=== PATIENT | male | born 1950 | race Caucasian/White ===

== ENCOUNTER 2019-03-02 07:33 | Inpatient (IN) | payer MEDICARE, OTHER ==
[~2019-03-02] VITALS: Ht 188 cm; Wt 113.3 kg
[2019-03-02] MEDS ORDERED: FLUT1DIS3 INH (08:00)
[2019-03-02] MEDS ORDERED: LEVO125T5 PO (08:00)
[2019-03-02] MEDS ORDERED: AMLO10TA8 PO (08:00)
[2019-03-02] MEDS ORDERED: TIOT18CA INH (08:00)
[2019-03-02] MEDS ORDERED: LOVA40TA2 PO (08:00)
[2019-03-02] MEDS ORDERED: RANI300T PO (08:00)
[2019-03-02] MEDS ORDERED: TERA2CAP3 PO (08:00)
[2019-03-02] MEDS ORDERED: BUSP10TA PO (08:00)
[2019-03-02] MEDS ORDERED: ATEN25TA PO (08:00)
[2019-03-02] MEDS ORDERED: MIRT30TA4 PO (08:00)
[2019-03-02] MEDS ORDERED: ALBU18HF INH (08:00)
--- NOTE | 2019-03-02 08:05 | NUR ---
BIB EMS FROM CAMPING AT [facility]. WOKE THIS MORNING AT 0330 WITH RUQ ABD PAIN, DIAPHORESIS PALE, NAUSEA. PAIN SEVERE INTERMITTANT. DENIES PAIN AT THIS TIME. PT ON MONITOR, SR, VSS. DR MARTINS AT BEDSIDE, ASSESSMENT COMPLETED.
--- NOTE | 2019-03-02 08:06 | NUR ---
DR FU AT BEDSIDE. ASSESSMENT REVIEWED, ORDERS REC'D
--- NOTE | 2019-03-02 08:07 | NUR ---
CALL LIGHT W/I REACH, URINAL AT BEDSIDE.
[2019-03-02 08:22] LABS: BASOPHILS # (AUTO) 0.09 x10^3/uL (0-0.1); BASOPHILS % (AUTO) 1 % (0-1); EOSINOPHILS % (AUTO) 1 % (1-7); LYMPHOCYTES # (AUTO) 0.99 x10^3/uL (1-3.4); LYMPHOCYTES % (AUTO) 14 % (22-44); MD NO; MEAN CORPUSCULAR HEMOGLOBIN 26.8 pg (27.5-34.5); MEAN CORPUSCULAR HGB CONC 32.2 g/dL (33.2-36.2); MEAN CORPUSCULAR VOLUME 83.3 fL (81-97); MEAN PLATELET VOLUME 7.6 fL (7.4-10.4); MONOCYTES # (AUTO) 0.51 x10^3/uL (0.2-0.8); MONOCYTES % (AUTO) 7 % (2-9); NEUTROPHILS # (AUTO) 5.41 x10^3/uL (1.8-6.8); NEUTROPHILS % (AUTO) 76 % (42-75); PLATELET COUNT 308 x10^3/uL (130-400); RED BLOOD COUNT 5.19 x10^6/uL (4.38-5.82); RED CELL DISTRIBUTION WIDTH 16.6 % (9.4-14.8)
[2019-03-02 08:34] LABS: ALBUMIN 3.5 g/dL (3.4-5.0); ANION GAP 9 mmol/L (5-15); CALCIUM 8.8 mg/dL (8.5-10.1); CHLORIDE 112 mmol/L (98-107)
[2019-03-02 08:41] LABS: ALANINE AMINOTRANSFERASE 26 U/L (12-78); ALKALINE PHOSPHATASE 90 U/L (45-117); BILIRUBIN,TOTAL 0.6 mg/dL (0.2-1.0); CREATININE 1.85 mg/dL (0.7-1.3); TOTAL PROTEIN 6.8 g/dL (6.4-8.2); TROPONIN I < 0.015 ng/mL (0.000-0.045)
[2019-03-02 09:30] LABS: MICROSCOPIC NOT IND
[2019-03-02] MEDS ORDERED: SODIUM CHLORIDE 0.9% 1,000 ML IV SCH (09:30)
[2019-03-02 09:32] LABS: CULTURE INDICATED? NO
--- NOTE | 2019-03-02 09:46 | NUR ---
[facility]. STAND AND TRANSFER W/O DIFFICULTY. CALL LIGHT W/I REACH.
[2019-03-02] MEDS ORDERED: GUAIFENESIN/COD200MG-20MG/10ML LIQUID PO PRN (12:30)
[2019-03-02] MEDS ORDERED: DOCUSATE 100 MG CAPSULE PO PRN (12:30)
[2019-03-02] MEDS ORDERED: ONDANSETRON 2MG/ML, 2ML IVPush PRN (12:30)
[2019-03-02] MEDS ORDERED: ACETAMINOPHEN 325 MG TABLET PO PRN (12:30)
[2019-03-02] MEDS ORDERED: hydrALAzine 20 MG/ML, 1ML IVPush PRN (12:30)
[2019-03-02] MEDS ORDERED: morphine SULFATE 10 MG/ML, 1ML IVPush PRN (12:30)
[2019-03-02] MEDS: LACTATED RINGERS 1,000 ML IV SCH ×2 (13:55→21:23)
[2019-03-02] MEDS: HEPARIN 5,000 UNITS/ML, 1ML SQ SCH ×2 (13:56→21:29)
[2019-03-02] MEDS: ATENOLOL 25 MG TABLET PO SCH (13:56)
[2019-03-02] MEDS: AMLODIPINE 10 MG TAB PO SCH (13:56)
[2019-03-02] MEDS ORDERED: ALBUTEROL SULFATE 2.5 MG/3 ML NPPB PRN (14:00)
[2019-03-02] MEDS ORDERED: IPRATROPIUM 0.5 MG/2.5 ML INHA HHN SCH (14:00)
[2019-03-02] MEDS ORDERED: ALBUTEROL SULFATE 2.5 MG/3 ML HHN SCH (14:00)
[2019-03-02] MEDS: ALBUTEROL/IPRATROPIUM 2.5MG/0.5MG, 3 ML NPPB SCH ×2 (14:43→21:00)
[2019-03-02 14:59] LABS: TROPONIN I < 0.015 ng/mL (0.000-0.045)
[2019-03-02] MEDS: BUSPIRONE 10 MG TABLET PO SCH ×2 (16:34→21:27)
[2019-03-02] MEDS: FAMOTIDINE 20 MG TABLET PO SCH (16:34)
[2019-03-02 18:31] LABS: CHLORIDE,URINE RANDOM 163 mmol/L; POTASSIUM,URINE RANDOM 31 mmol/L; SODIUM,URINE RANDOM 160 mmol/L
[2019-03-02 18:42] VITALS: BP 118/69
[2019-03-02 19:16] LABS: OSMOLALITY,URINE 547 mOsm/kg (500-850)
[2019-03-02] MEDS: BUDESONIDE 0.5 MG/2 ML INHA NPPB SCH (21:00)
[2019-03-02] MEDS ORDERED: MIRTAZAPINE 30 MG TABLET PO SCH (21:00)
[2019-03-02] MEDS ORDERED: LOVASTATIN 40 MG TABLET PO SCH (21:00)
[2019-03-02] MEDS ORDERED: TERAZOSIN 2MG CAPSULE PO SCH (21:00)
[2019-03-02 21:02] LABS: TROPONIN I < 0.015 ng/mL (0.000-0.045)
[2019-03-02] MEDS ORDERED: BUSPIRONE 5 MG TABLET ONE ×2 (21:17→21:26)
[2019-03-03 00:05] VITALS: BP 101/69
[2019-03-03] MEDS: ALBUTEROL/IPRATROPIUM 2.5MG/0.5MG, 3 ML NPPB SCH ×3 (03:00→15:00)
[2019-03-03 05:14] LABS: BASOPHILS # (AUTO) 0.04 x10^3/uL (0-0.1); BASOPHILS % (AUTO) 1 % (0-1); EOSINOPHILS # (AUTO) 0.25 x10^3/uL (0-0.4); EOSINOPHILS % (AUTO) 4 % (1-7); LYMPHOCYTES # (AUTO) 2.26 x10^3/uL (1-3.4); LYMPHOCYTES % (AUTO) 33 % (22-44); MD NO; MEAN CORPUSCULAR HEMOGLOBIN 27.1 pg (27.5-34.5); MEAN CORPUSCULAR HGB CONC 31.7 g/dL (33.2-36.2); MEAN CORPUSCULAR VOLUME 85.3 fL (81-97); MEAN PLATELET VOLUME 7.9 fL (7.4-10.4); MONOCYTES # (AUTO) 0.55 x10^3/uL (0.2-0.8); MONOCYTES % (AUTO) 8 % (2-9); NEUTROPHILS # (AUTO) 3.83 x10^3/uL (1.8-6.8); NEUTROPHILS % (AUTO) 55 % (42-75); PLATELET COUNT 306 x10^3/uL (130-400); RED BLOOD COUNT 5.46 x10^6/uL (4.38-5.82); RED CELL DISTRIBUTION WIDTH 17.2 % (9.4-14.8)
[2019-03-03 05:27] LABS: ANION GAP 6 mmol/L (5-15); CALCIUM 8.9 mg/dL (8.5-10.1); CHLORIDE 112 mmol/L (98-107); CREATININE 1.42 mg/dL (0.7-1.3)
[2019-03-03 05:30] LABS: HEMOGLOBIN A1C 5.8 % (4.2-6.3)
[2019-03-03 05:38] LABS: CHOL/HDL RATIO 3.1; CHOLESTEROL, TOTAL 135 mg/dL (140-239); HDL CHOL % 32 % (26-37); HDL CHOLESTEROL (DIRECT) 43 mg/dL (40-60); LDL CHOLESTEROL,CALCULATED 72 mg/dL (54-169); LDL/HDL RATIO 1.7 (0.5-3.0); TRIGLYCERIDES 98 mg/dL (50-200); VLDL CHOLESTEROL 20 mg/dL (0-25)
[2019-03-03] MEDS: HEPARIN 5,000 UNITS/ML, 1ML SQ SCH ×2 (06:29→14:00)
[2019-03-03 06:48] VITALS: BP 125/65
[2019-03-03] MEDS ORDERED: LEVOTHYROXINE 125 MCG TABLET PO SCH (07:30)
[2019-03-03] MEDS ORDERED: BUSPIRONE 5 MG TABLET ONE (08:07)
[2019-03-03] MEDS ORDERED: LEVOTHYROXINE 100 MCG TABLET ONE (08:07)
[2019-03-03] MEDS ORDERED: LEVOTHYROXINE 25 MCG TABLET ONE (08:07)
[2019-03-03] MEDS: ATENOLOL 25 MG TABLET PO SCH (08:19)
[2019-03-03] MEDS: FAMOTIDINE 20 MG TABLET PO SCH (08:25)
[2019-03-03] MEDS: AMLODIPINE 10 MG TAB PO SCH (08:25)
[2019-03-03] MEDS: BUSPIRONE 10 MG TABLET PO SCH (08:25)
[2019-03-03] MEDS ORDERED: REGADENOSON 0.4 MG/5 ML SYRINGE ONE (08:41)
[2019-03-03] MEDS ORDERED: TEMPLATE NON-FORMULARY MED. (Fluticasone/Salmeterol** (Advair 250-50 Diskus**) 1 PUFF) INH SCH (09:00)
[2019-03-03] MEDS: BUDESONIDE 0.5 MG/2 ML INHA NPPB SCH (09:00)
[2019-03-03 12:23] VITALS: BP 137/88
[2019-03-03] MEDS ORDERED: ATEN25TA PO (14:04)
== END 2019-03-03 15:40 | disposition home or self-care (01) | DRG 391 ==
LOC: ED 09:05 → EDIP 09:06 → ED 09:32 → 5SO 12:51 → DCLOUNGE 03-03 15:40
PROVIDERS: ADMIT Internal Medicine; ATTEND Internal Medicine
DX: K21.9 Gastro-esophageal reflux disease without esophagitis (principal); N17.0 Acute kidney failure with tubular necrosis; E03.9 Hypothyroidism, unspecified; E78.5 Hyperlipidemia, unspecified; F12.90 Cannabis use, unspecified, uncomplicated; F17.290 Nicotine dependence, other tobacco product, uncomplicated; I12.9 Hypertensive chronic kidney disease with stage 1 through stage 4 chronic kidney disease, or unspecified chronic kidney disease; J44.9 Chronic obstructive pulmonary disease, unspecified; N18.9 Chronic kidney disease, unspecified; Z80.0 Family history of malignant neoplasm of digestive organs; Z88.8 Allergy status to other drugs, medicaments and biological substances; R07.89 Other chest pain
CPT/HCPCS: 36415; 71045; 78452; 80048; 80053; 80061; 81003; 82436; 82570; 83036; 83690; 83735; 83935; 84100; 84133; 84300; 84443; 84484; 85025; 93005; 93017; 94640; 96360; 96361; G0378; J1644; J2785; J7620; A9502; C9898; J7030; J7120